=== PATIENT | female | born 2000 | race Caucasian/White ===

== ENCOUNTER 2021-04-20 14:53 | Emergency (ER) | payer OTHER ==
[2021-04-20 15:08] VITALS: BP 124/75
[2021-04-20 15:27] LABS: RAPID STREP SCREEN Negative (Negative)
[2021-04-20] MEDS ORDERED: MAG HYDROX/AL HYDROX/SIMETH 30 ML UDC PO STA (15:34)
[2021-04-20] MEDS ORDERED: LIDOCAINE VISCOUS 2% 15 ML UDC MM STA (15:34)
--- NOTE | 2021-04-20 15:35 | ED Physician Documentation ---
History of Present Illness - Stated complaint Stated Complaint: SORE THROAT - Chief complaint Chief Complaint: Heent - History obtained from History obtained from: Patient - Additonal information Additional information: 20-year-old with history of chronic tonsil stones presents with 4 days of severe sore throat and pain with swallowing. No fevers. Review of Systems Constitutional: denies: Fever, Chills Nose: reports: Rhinorrhea / runny nose Throat: reports: Sore throat PD PAST MEDICAL HISTORY - Allergies Allergies/Adverse Reactions: Allergies Allergy/AdvReac Type Severity Reaction Status Date / Time No Known Drug Allergies Allergy Verified 04/20/21 15:08 PD ED PE NORMAL - Vitals Vital signs reviewed: Yes - General General: Alert and oriented X 3, No acute distress - HEENT HEENT: Other (Exudative tonsillitis with mild anterior cervical adenopathy. No asymmetry.) - Neck Neck: Supple, no meningeal sign, No bony TTP - Neuro Neuro: Alert and oriented X 3, Normal speech Results - Vitals Vitals: Vital Signs - 24 hr 04/20/21 15:05 Temperature 36.8 C Heart Rate 93 Respiratory 16 Rate Blood Pressure 124/75 O2 Saturation 95 Oxygen O2 Source Room air - Labs Labs: Laboratory Tests 04/20/21 15:10 Group A Strep Rapid Negative PD MEDICAL DECISION MAKING - ED course ED course: This is a 20-year-old who is actively traveling, she has exudative tonsillitis. We discussed the possibility of mono but she declined testing for that. Departure - Departure Disposition: 01 Home, Self Care Clinical Impression: Exudative tonsillitis Condition: Good Record reviewed to determine appropriate education?: Yes Instructions: ED Peritonsillar Infec Abx No I andD Comments: You are seen today for exudative tonsillitis. Your strep test was negative and we are performing a culture but you will have been treated for that with intramuscular penicillin that we gave you here, no need for further antibiotics. Continue ibuprofen, also [id number] Chloraseptic may help a lot. Return if worsening.
[2021-04-20] MEDS ORDERED: PENICILLIN G BENZATHINE 600,000 UNIT/ML SYRINGE IM STA (15:43)
== END 2021-04-20 16:40 | disposition home or self-care (01) ==
LOC: ED 14:53
DX: J03.90 Acute tonsillitis, unspecified (principal)
CPT/HCPCS: 87070; 87430; 96372; 99283; A9270